=== PATIENT | male | born 1960 | race Caucasian/White ===

== ENCOUNTER 2017-02-04 09:33 | Observation (INO) | payer OTHER ==
[~2017-02-04] VITALS: Ht 193 cm; Wt 112.0 kg
[2017-02-04 09:54] LABS: URINE BILIRUBIN NEGATIVE (NEGATIVE); URINE BLOOD NEGATIVE (NEGATIVE); URINE GLUCOSE (UA) NORMAL (NORMAL); URINE KETONE NEGATIVE (NEGATIVE); URINE LEUKOCYTE ESTERASE NEGATIVE (NEGATIVE); URINE NITRATE NEGATIVE (NEGATIVE); URINE PROTEIN NEGATIVE (NEGATIVE); UROBILINOGEN NORMAL mg/dL (<1.0)
[2017-02-04 09:56] LABS: BASO % 0.2 % (0.2-1.2); EOS # 0.1 10_X3_uL (0.0-0.5); EOS % 1.2 % (0.8-7.0); GRAN # 4.9 10_X3_uL (1.8-5.4); GRAN % 59.5 % (34.0-67.9); HEMATOCRIT 44.3 % (40-51); LYMPH # 2.5 10_X3_uL (1.3-3.6); LYMPH % 29.7 % (21.8-53.1); MEAN CORPUSCULAR HEMOGLOBIN 30.1 pg (27.0-33.0); MEAN CORPUSCULAR HGB CONC 33.9 g/dL (32.0-36.0); MEAN PLATELET VOLUME 10.7 fl (7.5-11.5); MONO # 0.8 10_X3_uL (0.3-0.8); MONO % 9.4 % (5.3-12.2); PLATELET COUNT 207 x10_3/uL (163-337); RED BLOOD COUNT 4.98 x10_6/uL (4.6-6.1); RED CELL DISTRIBUTION WIDTH 14.9 % (11.6-14.4); WHITE BLOOD COUNT 8.3 x10_3/uL (4.2-9.1)
[2017-02-04 10:11] LABS: ALBUMIN 4.3 gm/dL (3.4-5.0); ALKALINE PHOSPHATASE 37 U/L (50-136); ALT/SGPT 15 U/L (7.53-40.17); AST/SGOT 17 U/L (6.66-35.34); BILIRUBIN,TOTAL 1.35 mg/dL (0.0-1.0); BLOOD UREA NITROGEN 13 mg/dL (7-18); CARBON DIOXIDE 26 mmol/L (21-32); GLUCOSE,RANDOM 97 mg/dL (70-99); POTASSIUM 4.3 mmol/L (3.5-5.1); SODIUM 139 mmol/L (136-145); TOTAL PROTEIN 7.3 gm/dL (6.4-8.2)
[2017-02-04 20:07] LABS: CKMB 1.9 ng/ml (0.0-5.0)
[2017-02-04 20:08] LABS: TROP-I < 0.30 NG/ML (0.00-0.30)
[2017-02-05 02:03] LABS: CKMB 1.9 ng/ml (0.0-5.0)
[2017-02-05 02:04] LABS: TROP-I < 0.30 NG/ML (0.00-0.30)
[2017-02-05 06:56] LABS: HEMATOCRIT 38.8 % (40-51); HEMOGLOBIN 13.2 g/dL (13.7-17.5); MEAN CORPUSCULAR HEMOGLOBIN 30.4 pg (27.0-33.0); MEAN CORPUSCULAR VOLUME 89.4 fL (79-92); MEAN PLATELET VOLUME 11.3 fl (7.5-11.5); RED BLOOD COUNT 4.34 x10_6/uL (4.6-6.1); RED CELL DISTRIBUTION WIDTH 14.9 % (11.6-14.4); WHITE BLOOD COUNT 11.8 x10_3/uL (4.2-9.1)
[2017-02-05 08:08] LABS: CKMB 1.8 ng/ml (0.0-5.0)
[2017-02-05 08:09] LABS: TROP-I < 0.30 NG/ML (0.00-0.30)
== END 2017-02-05 14:07 | disposition home or self-care (01) ==
LOC: ER 09:33 → MS 14:21 → UNDODEPER 02-07 14:23
PROVIDERS: Internal Medicine; ADMIT Surgery
PROC: 0DTJ4ZZ Resection of Appendix, Percutaneous Endoscopic Approach (ICD-10-PCS; principal; 2017-02-04)
DX: K35.80 Unspecified acute appendicitis (principal); R10.31 Right lower quadrant pain; R10.33 Periumbilical pain; I10 Essential (primary) hypertension; R68.83 Chills (without fever); Z79.891 Long term (current) use of opiate analgesic; Z79.899 Other long term (current) drug therapy; Z88.0 Allergy status to penicillin; Z88.2 Allergy status to sulfonamides
CPT/HCPCS: 36415; 44970; 80053; 81003; 82550; 82553; 85025; 93005; 93041; 96361; 96365; 96366; 96375; 96376; 99070; 99285-25; G0378; J2704; J2710

== ENCOUNTER 2017-02-06 01:05 | Emergency (ER) | payer OTHER ==
[2017-02-06 01:50] LABS: HEMATOCRIT 40.1 % (40-51); HEMOGLOBIN 13.6 g/dL (13.7-17.5); MEAN CORPUSCULAR HEMOGLOBIN 30.4 pg (27.0-33.0); MEAN CORPUSCULAR HGB CONC 33.9 g/dL (32.0-36.0); MEAN CORPUSCULAR VOLUME 89.5 fL (79-92); MEAN PLATELET VOLUME 11.3 fl (7.5-11.5); RED BLOOD COUNT 4.48 x10_6/uL (4.6-6.1); RED CELL DISTRIBUTION WIDTH 15.1 % (11.6-14.4); WHITE BLOOD COUNT 11.6 x10_3/uL (4.2-9.1)
[2017-02-06 02:03] LABS: ALBUMIN 3.8 gm/dL (3.4-5.0); ALKALINE PHOSPHATASE 31 U/L (50-136); ALT/SGPT 16 U/L (7.53-40.17); AST/SGOT 21 U/L (6.66-35.34); BILIRUBIN,TOTAL 0.58 mg/dL (0.0-1.0); CALCIUM 8.2 mg/dL (8.7-10.7); CARBON DIOXIDE 23 mmol/L (21-32); CREATININE 1.2 mg/dL (0.6-1.3); GLUCOSE,RANDOM 101 mg/dL (70-99); POTASSIUM 4.3 mmol/L (3.5-5.1); SODIUM 138 mmol/L (136-145); TOTAL PROTEIN 6.5 gm/dL (6.4-8.2)
[2017-02-06 02:04] LABS: BLOOD UREA NITROGEN 21 mg/dL (7-18)
== END 2017-02-06 02:48 | disposition home or self-care (01) ==
LOC: ER 01:05
PROVIDERS: General Practice
DX: R06.01 Orthopnea (principal); R63.5 Abnormal weight gain; Z98.890 Other specified postprocedural states; R14.3 Flatulence; Z88.0 Allergy status to penicillin; Z88.2 Allergy status to sulfonamides
CPT/HCPCS: 36415; 71250; 80053; 83880; 99284-25

== ENCOUNTER 2017-02-12 16:58 | Emergency (ER) | payer OTHER | END 2017-02-12 19:31 | disposition other institution (70) | LOC: ER 16:58 | DX: K57.32 Diverticulitis of large intestine without perforation or abscess without bleeding (principal); R10.30 Lower abdominal pain, unspecified; E66.9 Obesity, unspecified; Z79.82 Long term (current) use of aspirin; Z79.891 Long term (current) use of opiate analgesic; Z79.899 Other long term (current) drug therapy | CPT/HCPCS: 99284; 99285-25 ==

== ENCOUNTER 2017-02-12 16:58 | Inpatient (IN) | payer OTHER ==
[~2017-02-12] VITALS: Ht 193 cm; Wt 113.0 kg
[2017-02-12 17:43] LABS: PH,URINE 6.5 (5.0 - 9.0); URINE BILIRUBIN NEGATIVE (NEGATIVE); URINE BLOOD NEGATIVE (NEGATIVE); URINE GLUCOSE (UA) NORMAL (NORMAL); URINE KETONE NEGATIVE (NEGATIVE); URINE LEUKOCYTE ESTERASE TRACE (NEGATIVE); URINE NITRATE NEGATIVE (NEGATIVE); URINE PROTEIN NEGATIVE (NEGATIVE); UROBILINOGEN NORMAL mg/dL (<1.0)
[2017-02-12 18:16] LABS: BASO % 0.1 % (0.2-1.2); EOS # 0.2 10_X3_uL (0.0-0.5); EOS % 1.6 % (0.8-7.0); GRAN # 10.2 10_X3_uL (1.8-5.4); GRAN % 70.5 % (34.0-67.9); HEMATOCRIT 45.4 % (40-51); HEMOGLOBIN 15.5 g/dL (13.7-17.5); LYMPH # 2.7 10_X3_uL (1.3-3.6); LYMPH % 18.3 % (21.8-53.1); MEAN CORPUSCULAR HEMOGLOBIN 30.4 pg (27.0-33.0); MEAN CORPUSCULAR HGB CONC 34.1 g/dL (32.0-36.0); MEAN PLATELET VOLUME 10.8 fl (7.5-11.5); MONO # 1.4 10_X3_uL (0.3-0.8); MONO % 9.5 % (5.3-12.2); PLATELET COUNT 250 x10_3/uL (163-337); RED CELL DISTRIBUTION WIDTH 14.7 % (11.6-14.4); WHITE BLOOD COUNT 14.5 x10_3/uL (4.2-9.1)
[2017-02-12 18:33] LABS: URINE WBC RARE /[HPF] (0-3)
[2017-02-12 23:11] LABS: ALKALINE PHOSPHATASE 35 U/L (50-136); ALT/SGPT 23 U/L (7.53-40.17); AST/SGOT 22 U/L (6.66-35.34); BILIRUBIN,TOTAL 1.34 mg/dL (0.0-1.0); BLOOD UREA NITROGEN 15 mg/dL (7-18); CALCIUM 9.2 mg/dL (8.7-10.7); CARBON DIOXIDE 23 mmol/L (21-32); CREATININE 0.9 mg/dL (0.6-1.3); GLUCOSE,RANDOM 97 mg/dL (70-99); POTASSIUM 4.2 mmol/L (3.5-5.1); SODIUM 136 mmol/L (136-145); TOTAL PROTEIN 7.1 gm/dL (6.4-8.2)
[2017-02-13 07:24] LABS: HEMOGLOBIN 15.3 g/dL (13.7-17.5); MEAN CORPUSCULAR HEMOGLOBIN 30.1 pg (27.0-33.0); MEAN CORPUSCULAR VOLUME 88.4 fL (79-92); MEAN PLATELET VOLUME 10.7 fl (7.5-11.5); RED BLOOD COUNT 5.09 x10_6/uL (4.6-6.1); RED CELL DISTRIBUTION WIDTH 14.7 % (11.6-14.4); WHITE BLOOD COUNT 11.9 x10_3/uL (4.2-9.1)
[2017-02-13 07:33] LABS: BLOOD UREA NITROGEN 15 mg/dL (7-18); CALCIUM 9.1 mg/dL (8.7-10.7); CARBON DIOXIDE 23 mmol/L (21-32); CREATININE 0.9 mg/dL (0.6-1.3); GLUCOSE,RANDOM 103 mg/dL (70-99); POTASSIUM 4.1 mmol/L (3.5-5.1); SODIUM 136 mmol/L (136-145)
[2017-02-14 07:07] LABS: ALKALINE PHOSPHATASE 37 U/L (50-136); ALT/SGPT 17 U/L (7.53-40.17); AST/SGOT 15 U/L (6.66-35.34); BLOOD UREA NITROGEN 15 mg/dL (7-18); CALCIUM 9.1 mg/dL (8.7-10.7); CARBON DIOXIDE 22 mmol/L (21-32); CREATININE 0.9 mg/dL (0.6-1.3); GLUCOSE,RANDOM 98 mg/dL (70-99); HEMATOCRIT 43.3 % (40-51); HEMOGLOBIN 14.8 g/dL (13.7-17.5); MEAN CORPUSCULAR HEMOGLOBIN 30.5 pg (27.0-33.0); MEAN CORPUSCULAR HGB CONC 34.2 g/dL (32.0-36.0); MEAN CORPUSCULAR VOLUME 89.1 fL (79-92); MEAN PLATELET VOLUME 11.1 fl (7.5-11.5); POTASSIUM 4.2 mmol/L (3.5-5.1); RED BLOOD COUNT 4.86 x10_6/uL (4.6-6.1); RED CELL DISTRIBUTION WIDTH 14.5 % (11.6-14.4); SODIUM 137 mmol/L (136-145); TOTAL PROTEIN 6.9 gm/dL (6.4-8.2); WHITE BLOOD COUNT 9.4 x10_3/uL (4.2-9.1)
[2017-02-15 07:33] LABS: BASO % 0.1 % (0.2-1.2); EOS # 0.3 10_X3_uL (0.0-0.5); EOS % 1.9 % (0.8-7.0); GRAN # 9.9 10_X3_uL (1.8-5.4); GRAN % 72.7 % (34.0-67.9); HEMATOCRIT 43.5 % (40-51); LYMPH % 14.7 % (21.8-53.1); MEAN CORPUSCULAR HEMOGLOBIN 30.4 pg (27.0-33.0); MEAN CORPUSCULAR HGB CONC 34.5 g/dL (32.0-36.0); MEAN CORPUSCULAR VOLUME 88.2 fL (79-92); MEAN PLATELET VOLUME 10.7 fl (7.5-11.5); MONO # 1.4 10_X3_uL (0.3-0.8); MONO % 10.6 % (5.3-12.2); PLATELET COUNT 231 x10_3/uL (163-337); RED BLOOD COUNT 4.93 x10_6/uL (4.6-6.1); RED CELL DISTRIBUTION WIDTH 14.2 % (11.6-14.4); WHITE BLOOD COUNT 13.6 x10_3/uL (4.2-9.1)
[2017-02-15 07:43] LABS: ALBUMIN 4.1 gm/dL (3.4-5.0); ALKALINE PHOSPHATASE 33 U/L (50-136); ALT/SGPT 16 U/L (7.53-40.17); AST/SGOT 18 U/L (6.66-35.34); BILIRUBIN,TOTAL 1.76 mg/dL (0.0-1.0); BLOOD UREA NITROGEN 13 mg/dL (7-18); CALCIUM 9.6 mg/dL (8.7-10.7); CARBON DIOXIDE 22 mmol/L (21-32); GLUCOSE,RANDOM 105 mg/dL (70-99); POTASSIUM 4.2 mmol/L (3.5-5.1); SODIUM 136 mmol/L (136-145); TOTAL PROTEIN 7.4 gm/dL (6.4-8.2)
[2017-02-16 07:20] LABS: HEMATOCRIT 43.6 % (40-51); MEAN CORPUSCULAR HEMOGLOBIN 30.3 pg (27.0-33.0); MEAN CORPUSCULAR HGB CONC 34.4 g/dL (32.0-36.0); MEAN CORPUSCULAR VOLUME 88.1 fL (79-92); MEAN PLATELET VOLUME 10.7 fl (7.5-11.5); RED BLOOD COUNT 4.95 x10_6/uL (4.6-6.1); RED CELL DISTRIBUTION WIDTH 14.2 % (11.6-14.4); WHITE BLOOD COUNT 13.3 x10_3/uL (4.2-9.1)
[2017-02-16 07:32] LABS: BLOOD UREA NITROGEN 16 mg/dL (7-18); CALCIUM 9.3 mg/dL (8.7-10.7); CARBON DIOXIDE 23 mmol/L (21-32); CREATININE 1.2 mg/dL (0.6-1.3); GLUCOSE,RANDOM 114 mg/dL (70-99); POTASSIUM 4.3 mmol/L (3.5-5.1); SODIUM 135 mmol/L (136-145)
[2017-02-17 07:34] LABS: HEMATOCRIT 42.8 % (40-51); HEMOGLOBIN 14.8 g/dL (13.7-17.5); MEAN CORPUSCULAR HEMOGLOBIN 30.4 pg (27.0-33.0); MEAN CORPUSCULAR HGB CONC 34.6 g/dL (32.0-36.0); MEAN CORPUSCULAR VOLUME 87.9 fL (79-92); MEAN PLATELET VOLUME 10.9 fl (7.5-11.5); RED BLOOD COUNT 4.87 x10_6/uL (4.6-6.1); RED CELL DISTRIBUTION WIDTH 14.2 % (11.6-14.4); WHITE BLOOD COUNT 9.8 x10_3/uL (4.2-9.1)
[2017-02-17 07:56] LABS: BLOOD UREA NITROGEN 16 mg/dL (7-18); CALCIUM 9.3 mg/dL (8.7-10.7); CARBON DIOXIDE 22 mmol/L (21-32); CREATININE 1.1 mg/dL (0.6-1.3); GLUCOSE,RANDOM 106 mg/dL (70-99); POTASSIUM 4.1 mmol/L (3.5-5.1); SODIUM 133 mmol/L (136-145)
== END 2017-02-17 12:06 | disposition home or self-care (01) | DRG 392 ==
LOC: ER 16:58 → MS 19:31
PROVIDERS: Family Medicine; General Practice; ADMIT Family Medicine
DX: K57.32 Diverticulitis of large intestine without perforation or abscess without bleeding (principal); J40 Bronchitis, not specified as acute or chronic; J06.9 Acute upper respiratory infection, unspecified; K59.00 Constipation, unspecified; D72.829 Elevated white blood cell count, unspecified; R10.30 Lower abdominal pain, unspecified; I10 Essential (primary) hypertension; R11.0 Nausea; G89.29 Other chronic pain; M54.9 Dorsalgia, unspecified; G47.33 Obstructive sleep apnea (adult) (pediatric); H40.9 Unspecified glaucoma; F41.9 Anxiety disorder, unspecified; F43.10 Post-traumatic stress disorder, unspecified; Z83.3 Family history of diabetes mellitus; Z88.0 Allergy status to penicillin; Z88.2 Allergy status to sulfonamides; Z79.82 Long term (current) use of aspirin; Z79.891 Long term (current) use of opiate analgesic
CPT/HCPCS: 36415; 71020; 74000; 74150; 80048; 80053; 81001; 83735; 85025; 87040; 94640; 94664; 96365; 99070; 99284; 99285-25